=== PATIENT | female | born 1970 | race Two or more races ===

== ENCOUNTER 2023-02-14 02:33 | Emergency (ER) | payer OTHER ==
[~2023-02-14] VITALS: Ht 170.2 cm; Wt 68.0 kg
[~2023-02-14 02:33] MED LIST: ALBU18HF2 INH; LEVE500T9 PO; PRED50TA PO; UMEC62.5 IH
[2023-02-14 02:35] VITALS: TEMP 98.5
[2023-02-14] MEDS ORDERED: ALBUTEROL FS 2.5 MG/3 ML VIAL.NEB NEB ONE (03:00)
[2023-02-14] MEDS ORDERED: IPRATROPIUM NEB FS 0.5 MG/2.5 ML AMPUL.NEB NEB ONE (03:00)
[2023-02-14] MEDS ORDERED: methylPREDNISolone SOD SUCC 125 MG/2ML VIAL IV ONE (03:00)
[2023-02-14] MEDS ORDERED: IV NS 0.9% 1,000 ML IV ONE (03:00)
[2023-02-14 04:59] VITALS: BP 140/87
[2023-02-14] MEDS ORDERED: AZIT500T PO (05:06)
[2023-02-14] MEDS ORDERED: ALBU18HF2 INH (05:06)
[2023-02-14] MEDS ORDERED: PRED50TA PO (05:06)
== END 2023-02-14 05:35 | disposition home or self-care (01) ==
LOC: ER 02:33
DX: J45.909 Unspecified asthma, uncomplicated (principal); Z79.899 Other long term (current) drug therapy
CPT/HCPCS: 99283; 96360; J7030

== ENCOUNTER 2023-04-10 23:45 | Emergency (ER) | payer OTHER ==
[~2023-04-10] VITALS: Ht 154.9 cm; Wt 63.5 kg
[~2023-04-10 23:45] MED LIST changes: +AZIT500T PO
[2023-04-11] VITALS (13 sets, daily range): BP systolic 117; BP diastolic 81; TEMP 97.9; O2SAT 94–100
[2023-04-11] MEDS ORDERED: predniSONE 20 MG TABLET ONE (00:15)
[2023-04-11] MEDS ORDERED: ALBUTEROL FS 2.5 MG/3 ML VIAL.NEB ONE ×3 (00:16→04:07)
[2023-04-11] MEDS ORDERED: IPRATROPIUM NEB FS 0.5 MG/2.5 ML AMPUL.NEB ONE (00:16)
[2023-04-11] MEDS ORDERED: predniSONE 20 MG TABLET PO ONE (00:30)
[2023-04-11] MEDS ORDERED: IPRATROPIUM NEB FS 0.5 MG/2.5 ML AMPUL.NEB NEB ONE (00:30)
[2023-04-11] MEDS ORDERED: ALBUTEROL FS 2.5 MG/3 ML VIAL.NEB NEB ONE ×3 (00:30→04:00)
[2023-04-11] MEDS ORDERED: ALBU8.5H8 INH (05:28)
[2023-04-11] MEDS ORDERED: PRED50TA PO (05:28)
== END 2023-04-11 06:14 | disposition home or self-care (01) ==
LOC: ER 23:46
DX: J45.901 Unspecified asthma with (acute) exacerbation (principal); Z79.51 Long term (current) use of inhaled steroids; Z79.899 Other long term (current) drug therapy
CPT/HCPCS: 99285; 71045; 94799; 94640 ×4; J7512